=== PATIENT | male | born 1980 | race African-American/Black ===

== ENCOUNTER 2018-05-18 16:07 | Emergency (ER) | payer BC ==
[~2018-05-18] VITALS: Ht 188 cm; Wt 68.0 kg
[2018-05-18 17:22] LABS: BILIRUBIN,URINE NEGATIVE (NEG); CLARITY,URINE CLEAR; COLOR,URINE YELLOW; NITRITE,URINE NEGATIVE (NEG); PH,URINE 6.5; PROTEIN,URINE NEGATIVE (NEG-TRACE)
[2018-05-18 17:35] LABS: BACTERIA,URINE 0 /HPF (0-FEW); RBC,URINE OCC /HPF (0-2); WBC,URINE >40 /HPF (0-4)
--- NOTE | 2018-05-18 20:02 | RAD ---
TESTICULAR/SCROTUM: 05/18/2018 6:07 PM INDICATION: 37 years old Male. Left testicular pain. COMPARISON: None. FINDINGS: Sonographic evaluation of the testicles was performed utilizing grayscale, color Doppler and spectral waveform analysis. Right: Testicle: Normal in echotexture without focal lesion. Focal coarse calcification noted in the right testicle. Size: 4.1 x 2.9 x 1.9 cm. Flow: Normal color Doppler flow pattern. Epididymis: Normal in size and echotexture without focal lesion. Hydrocele: None. Varicocele: None. Left: Testicle: Normal in echotexture without focal lesion. Size: 4.2 x 3.1 x 1.9 cm. Flow: Normal color Doppler flow pattern. Epididymis: Edematous head and tail with hyperemia suggestive of epididymitis. Hydrocele: Small Varicocele: None. IMPRESSION: 1. Findings are suggestive of left-sided epididymitis. 2. Perfusion is noted to the testicles bilaterally at the time of imaging. Electronically signed by: Magy Hopkins MD (05/18/2018 7:58 PM) [facility]
[2018-05-18] MEDS ORDERED: LEVO500T59 PO (20:06)
--- NOTE | 2018-05-18 20:08 | PHYS DOC ---
Past Medical History Past Medical History: No Pertinent History Past Surgical History: Other Additional Past Surgical Histo: HERNIA Alcohol Use: None Drug Use: None Adult General Chief Complaint Chief Complaint: TESTICULAR PAIN OR INJURY HPI HPI Patient is a 37 year old male who presents with left testicular pain that started approximately 2:30 this morning. The patient states that his is and he thought that he was having the pain from decreased sexual activity. He denies possibility of sexually transmitted disease. He denies nausea, vomiting, diarrhea or constipation. He denies symptoms of dysuria. Review of Systems Review of Systems Constitutional: Denies fever or chills [] Eyes: Denies change in visual acuity, redness, or eye pain [] HENT: Denies nasal congestion or sore throat [] Respiratory: Denies cough or shortness of breath [] Cardiovascular: No additional information not addressed in HPI [] GI: Denies abdominal pain, nausea, vomiting, bloody stools or diarrhea [] : See history of present illness Musculoskeletal: Denies back pain or joint pain [] Integument: Denies rash or skin lesions [] Neurologic: Denies headache, focal weakness or sensory changes [] Endocrine: Denies polyuria or polydipsia [] All other systems were reviewed and found to be within normal limits, except as documented in this note. Current Medications Current Medications Current Medications Medications (Trade) Dose Ordered Sig/Anna Start Time Stop Time Status Last Admin Dose Admin Azithromycin (Zithromax) 1,000 mg 1X ONCE 05/18/18 20:30 05/18/18 20:31 Ceftriaxone Sodium (Rocephin Im) 1 gm 1X ONCE 05/18/18 20:30 05/18/18 20:31 Allergies Allergies Allergies Coded Allergies Type Severity Reaction Last Updated Verified No Known Drug Allergies 05/18/18 No Physical Exam Physical Exam Constitutional: Well developed, well nourished, no acute distress, non-toxic appearance. [] HENT: Normocephalic, atraumatic, bilateral external ears normal, oropharynx moist, no oral exudates, nose normal. [] Eyes: PERRLA, EOMI, conjunctiva normal, no discharge. [] Neck: Normal range of motion, no tenderness, supple, no stridor. [] Cardiovascular:Heart rate regular rhythm, no murmur [] Lungs & Thorax: Bilateral breath sounds clear to auscultation [] Abdomen: Bowel sounds normal, soft, no tenderness, no masses, no pulsatile masses. [] Skin: Warm, dry, no erythema, no rash. [] Back: No tenderness, no CVA tenderness. [] Extremities: No tenderness, no cyanosis, no clubbing, ROM intact, no edema. [] Neurologic: Alert and oriented X 3, normal motor function, normal sensory function, no focal deficits noted. [] Psychologic: Affect normal, judgement normal, mood normal. [] Current Patient Data Vital Signs Vital Signs Date Time Temp Pulse Resp B/P (MAP) Pulse Ox O2 Delivery O2 Flow Rate FiO2 05/18/18 16:44 97.9 73 16 110/66 (81) 98 Room Air 97.9 Lab Values Laboratory Tests Test 05/18/18 17:04 Urine Collection Type Unknown Urine Color Yellow Urine Clarity Clear Urine pH 6.5 Urine Specific [place] 1.015 Urine Protein Negative mg/dL (NEG-TRACE) Urine Glucose (UA) Negative mg/dL (NEG) Urine Ketones (Stick) Negative mg/dL (NEG) Urine Blood Negative (NEG) Urine Nitrite Negative (NEG) Urine Bilirubin Negative (NEG) Urine Urobilinogen Dipstick 1.0 mg/dL (0.2 mg/dL) Urine Leukocyte Esterase Moderate (NEG) Urine RBC Occ /HPF (0-2) Urine WBC >40 /HPF (0-4) Urine Bacteria 0 /HPF (0-FEW) Urine Mucus Slight /LPF EKG EKG [] Radiology/Procedures Radiology/Procedures []PATIENT: NAYA MARTINEZ SACCOUNT: [id number]#: [id number] : 1980 LOCATION: ER AGE: 37 SEX: M EXAM STATUS: REG ER ORD. PHYSICIAN: LUZ MARIA GARCIA APRN REASON: left testicular pain PROCEDURE: TESTICULAR/SCROTUM TESTICULAR/SCROTUM: 05/18/2018 6:07 PM INDICATION: 37 years old Male. Left testicular pain. COMPARISON: None. FINDINGS: Sonographic evaluation of the testicles was performed utilizing grayscale, color Doppler and spectral waveform analysis. Right: Testicle: Normal in echotexture without focal lesion. Focal coarse calcification noted in the right testicle. Size: 4.1 x 2.9 x 1.9 cm. Flow: Normal color Doppler flow pattern. Epididymis: Normal in size and echotexture without focal lesion. Hydrocele: None. Varicocele: None. Left: Testicle: Normal in echotexture without focal lesion. Size: 4.2 x 3.1 x 1.9 cm. Flow: Normal color Doppler flow pattern. Epididymis: Edematous head and tail with hyperemia suggestive of epididymitis. Hydrocele: Small Varicocele: None. IMPRESSION: 1. Findings are suggestive of left-sided epididymitis. 2. Perfusion is noted to the testicles bilaterally at the time of imaging. Electronically signed by: Marlon Hopkins MD (05/18/2018 7:58 PM) [facility] DICTATED and SIGNED BY: MARLON HOPKINS MD DATE: 05/18/181957 Course & Med Decision Making Course & Med Decision Making Pertinent Labs and Imaging studies reviewed. (See chart for details) []The patient was given Rocephin and Zithromax in the emergency department. He will take Levaquin for 10 days at home to finish eradication of the infection. He is to return immediately to the emergency department if worsening. He is to follow-up with his primary care provider in one week for recheck. Dragon Disclaimer Dragon Disclaimer This electronic medical record was generated, in whole or in part, using a voice recognition dictation system. Departure Departure Impression: Primary Impression: Epididymitis Disposition: 01 HOME, SELF-CARE Condition: STABLE Referrals: NON,STAFF (PCP) Patient Instructions: Epididymitis Additional Instructions: Take the medication as directed. Follow-up with your primary care provider for a urine recheck in one week. Abstain from sexual activity for 2 weeks to allow time for the antibiotics to work. If worsening return to the emergency department. Scripts Levofloxacin (LEVAQUIN) 500 Mg Tablet 1 TAB PO DAILY for epididymitis, #10 TAB Prov: LUZ MARIA GARCIA APRN 05/18/18 LUZ MARIA GARCIA APRN May 18, 2018 20:08
[2018-05-18] MEDS ORDERED: cefTRIAXone IM 1 GM VIAL IM ONE (20:30)
[2018-05-18] MEDS ORDERED: AZITHROMYCIN 250 MG TABLET. PO ONE (20:30)
[2018-05-18 20:38] VITALS: BP 118/74
== END 2018-05-18 20:41 | disposition home or self-care (01) ==
LOC: ER 16:07
DX: N45.1 Epididymitis (principal)
CPT/HCPCS: 76870; 81001; 87491; 87591; 96372; 99284; J0696; Q0144; 87086